=== PATIENT | female | born 1985 | race American Indian/Alaskan Native ===

== ENCOUNTER 2018-01-30 07:59 | Emergency (ER) | payer SELFPAY ==
--- NOTE | 2018-01-30 08:24 | Emergency Department Report ---
ED Female HPI - General Chief complaint: Urogenital-Female Stated complaint: VAG DISCHARGE Time Seen by Provider: 01/30/18 08:22 Source: patient Mode of arrival: Ambulatory Limitations: No Limitations - History of Present Illness Initial comments: Patient is a 27-year-old female presents to the ED complaining of vaginal discharge with foul odor times one week. Patient describes discharge as white, creamy consistency. She denies any vaginal lesions or pain. She states last menstrual period was 01/20/2018. Patient reports recent unprotected sex with her partner. Patient denies any fever, chills, nausea or vomiting vaginal itching, dysuria, vaginal bleeding, dyspareunia. MD Complaint: vaginal discharge, dysuria, pelvic pain - Related Data Previous Rx's Medication Instructions Recorded Last Taken Type ALBUTEROL Inhaler [ProAir HFA 2 puff IH QID PRN #1 inha 09/15/13 Unknown Rx Inhaler] Azithromycin [Zithromax Z-SANTOSH] 250 mg PO DAILY #4 tab 09/15/13 Unknown Rx HYDROcodone/APAP 5-325 [Central 1 each PO Q6HR PRN #20 tablet 09/15/13 Unknown Rx 5/325 mg] Ibuprofen [Motrin] 800 mg PO TID PRN #30 tablet 09/15/13 Unknown Rx predniSONE [Deltasone] 20 mg PO QDAY #8 tablet 09/15/13 Unknown Rx Fluticasone [Flonase] 1 spray NS QDAY #1 bottle 11/15/15 Unknown Rx Ibuprofen [Motrin 800 MG tab] 800 mg PO Q8HR PRN #30 tablet 11/15/15 Unknown Rx Ondansetron [Zofran Odt] 4 mg PO Q6HR PRN #20 tab.rapdis 11/15/15 Unknown Rx guaiFENesin/CODEINE [Robitussin AC] 5 ml PO Q6HR PRN #120 oral.liqd 11/15/15 Unknown Rx Allergies Allergy/AdvReac Type Severity Reaction Status Date / Time iodine Allergy Hives Unverified 09/26/16 08:59 Penicillins Allergy Hives Unverified 09/26/16 08:58 ED Review of Systems ROS: Stated complaint: VAG DISCHARGE Other details as noted in HPI Constitutional: denies: chills, fever Eyes: denies: eye pain, eye discharge, vision change ENT: denies: ear pain, throat pain Respiratory: denies: cough, shortness of breath, wheezing Cardiovascular: denies: chest pain, palpitations Endocrine: no symptoms reported Gastrointestinal: denies: abdominal pain, nausea, diarrhea Genitourinary: discharge. denies: urgency, dysuria, frequency, hematuria Musculoskeletal: denies: back pain, joint swelling, arthralgia Skin: denies: rash, lesions, pruritus Neurological: denies: headache, weakness, paresthesias Psychiatric: denies: anxiety, depression Hematological/Lymphatic: denies: easy bleeding, easy bruising ED Past Medical Hx - Past Medical History Hx Sickle Cell Disease: Yes Hx Asthma: Yes - Surgical History Additional Surgical History: R leg - Social History Smoking Status: Current Every Day Smoker Substance Use Type: None - Medications Home Medications: Home Medications Medication Instructions Recorded Confirmed Last Taken Type ALBUTEROL Inhaler [ProAir HFA 2 puff IH QID PRN #1 inha 09/15/13 Unknown Rx Inhaler] Azithromycin [Zithromax Z-SANTOSH] 250 mg PO DAILY #4 tab 09/15/13 Unknown Rx HYDROcodone/APAP 5-325 [Central 1 each PO Q6HR PRN #20 tablet 09/15/13 Unknown Rx 5/325 mg] Ibuprofen [Motrin] 800 mg PO TID PRN #30 tablet 09/15/13 Unknown Rx predniSONE [Deltasone] 20 mg PO QDAY #8 tablet 09/15/13 Unknown Rx Fluticasone [Flonase] 1 spray NS QDAY #1 bottle 11/15/15 Unknown Rx Ibuprofen [Motrin 800 MG tab] 800 mg PO Q8HR PRN #30 tablet 11/15/15 Unknown Rx Ondansetron [Zofran Odt] 4 mg PO Q6HR PRN #20 tab.rapdis 11/15/15 Unknown Rx guaiFENesin/CODEINE [Robitussin AC] 5 ml PO Q6HR PRN #120 oral.liqd 11/15/15 Unknown Rx ED Physical Exam - General Limitations: No Limitations General appearance: alert, in no apparent distress - Head Head exam: Present: atraumatic, normocephalic - Eye Eye exam: Present: normal appearance - ENT ENT exam: Present: mucous membranes moist - Neck Neck exam: Present: normal inspection - Respiratory Respiratory exam: Present: normal lung sounds bilaterally. Absent: respiratory distress - Cardiovascular Cardiovascular Exam: Present: regular rate, normal rhythm. Absent: systolic murmur, diastolic murmur, rubs, gallop - GI/Abdominal GI/Abdominal exam: Present: soft, normal bowel sounds. Absent: distended, tenderness, guarding - External exam: Present: normal external exam. Absent: erythema, swelling, lesions, lacerations Speculum exam: Present: vaginal discharge, cervical discharge. Absent: erythema , vaginal bleeding, tissue Bi-manual exam: Present: normal bi-manual exam. Absent: adnexal tenderness, uterine tenderness - Extremities Exam Extremities exam: Present: normal inspection, full ROM - Back Exam Back exam: Present: normal inspection, full ROM. Absent: tenderness - Neurological Exam Neurological exam: Present: alert, oriented X3 - Psychiatric Psychiatric exam: Present: normal affect, normal mood - Skin Skin exam: Present: warm, dry, intact, normal color. Absent: rash ED Course Vital Signs 01/30/18 01/30/18 01/30/18 08:03 08:37 11:23 Temperature 98.8 F 98.0 F 98.0 F Pulse Rate 77 84 76 Respiratory 18 14 14 Rate Blood Pressure 135/94 Blood Pressure 140/95 138/88 [Right] O2 Sat by Pulse 99 98 98 Oximetry ED Medical Decision Making - Medical Decision Making 32-year-old female presents with trichomoniasis. ED course: urinalysis and gonorrhea and Chlamydia cultures obtained. Urinalysis positive for leukorrhea Patient received 250 mg of Rocephin, azithromycin 1 g, Flagyl 2 g. Discussed with patient possible STD due to exposure. Discussed with patient findings and treatment Discussed prophylaxis treatment patient is to abstain from sex 7-10 days as treatment. Discussed patient partner knowledge and treatment. Discussed the follow-up with the health department for further STD testing. Patient's alert and oriented times 3. Vital signs are normal patient is in no acute discharge. Patient will be discharged home with instructions. Critical care attestation.: If time is entered above; I have spent that time in minutes in the direct care of this critically ill patient, excluding procedure time. ED Disposition Clinical Impression: STD (sexually transmitted disease), Trichomonal cervicitis UTI (urinary tract infection) Qualifiers: Urinary tract infection type: acute cystitis Hematuria presence: without hematuria Qualified Code(s): N30.00 - Acute cystitis without hematuria Disposition: TO HOME OR SELFCARE Is pt being admited?: No Does the pt Need Aspirin: No Condition: Stable Instructions: Cervicitis (ED), Sexually Transmitted Diseases (ED), Safe Sex (ED ), Trichomoniasis (ED) Additional Instructions: Make sure to follow up with the primary care physician as discussed. Take all your medications as you've been prescribed. If you have any worsening symptoms or develop new symptoms please return to ED immediately. Referrals: PRIMARY CARE, [Primary Care Provider] - 3-5 Days Forms: STI Treatment and Prevention, Work/School Release Form(ED) Time of Disposition: 10:24
[2018-01-30 09:35] LABS: Bacteria,Urine 1+ /HPF (Negative); Bilirubin,Urine NEG (Negative); Blood,Urine NEG (Negative); Color,Urine Yellow (Yellow); Mucus,Urine 1+ /HPF; Protein,Urine <15 mg/dL mg/dL (Negative)
[2018-01-30 09:36] LABS: HCG Qualitative,Urine Negative (Negative)
[2018-01-30] MEDS ORDERED: XYLOCAINE 1% MPF 5 mL INFILTRATI ONE (10:19)
[2018-01-30] MEDS ORDERED: FLAGYL PO ONE (10:19)
[2018-01-30] MEDS ORDERED: ROCEPHIN IM ONE (10:19)
[2018-01-30] MEDS ORDERED: ZITHROMAX PO ONE (10:19)
[2018-01-30 11:25] VITALS: BP 138/88
== END 2018-01-30 11:23 | disposition home or self-care (01) ==
LOC: ED 07:59
DX: N30.00 Acute cystitis without hematuria (principal); A59.09 Other urogenital trichomoniasis; A64 Unspecified sexually transmitted disease; J45.909 Unspecified asthma, uncomplicated; F17.200 Nicotine dependence, unspecified, uncomplicated
CPT/HCPCS: 81001; 81025; 87210; 87591; 96372; 99284; J0696

== ENCOUNTER 2019-07-18 21:57 | Inpatient (IN) | payer MEDICAID ==
[2019-07-18] MEDS ORDERED: LACTATED RINGERS 2,000 ML ONE (23:02)
[2019-07-18] MEDS ORDERED: LACTATED RINGERS 1,000 ML IV SCH (23:45)
[2019-07-18 23:59] LABS: Basophils % (Auto) 0.5 % (0.0-1.8); Eosinophils # (Auto) 0.1 K/mm3 (0.0-0.4); Eosinophils % (Auto) 0.9 % (0.0-4.3); Hematocrit 31.9 % (30.3-42.9); Hemoglobin 10.7 gm/dl (10.1-14.3); Lymphocytes # (Auto) 1.4 K/mm3 (1.2-5.4); Lymphocytes % (Auto) 20.7 % (13.4-35.0); Mean Corpuscular HGB Conc 34 % (30-34); Mean Corpuscular Volume 91 fl (79-97); Monocytes # (Auto) 0.5 K/mm3 (0.0-0.8); Platelet Count 228 K/mm3 (140-440); Red Blood Count 3.52 M/mm3 (3.65-5.03)
[2019-07-19] MEDS ORDERED: OXYTOCIN 20 UNIT/1000ML DRIP 20,000 MILLIUNITS/1,000 ML BAG IV ONE (00:42)
--- NOTE | 2019-07-19 01:32 | History and Physical Report ---
History of Present Illness Date of examination: 07/19/19 Date of admission: 07/19/19 01:10 Chief complaint: Leaking fluid, contractions History of present illness: 34yo G 4 P 2 0 1 2 @ 39 weeks 5 days here with c/o leaking fluid since 07/18/19 @ 21:20 and contractions. She reports +FMs. SROM confirmed by Nitrazine test; bloody fluid per RN. She is a [facility] pt who initiated care at 10 weeks gestation. She was later incarcerated at the [facility] where she had one documented visit. Her course was complicated by anemia, asthma, breast fibroadenosis, fibroid uterus, heart murmur, size date discrepancy, +trichomonas (neg DARION) and vit D deficiency. Her care was co-managed w/[facility]. LABS: Opos, Antibody Screen neg, Pap Smear normal, RI, VDRL NR, HBsAg neg, HIV neg, MSAFP neg, Diabetes Screen 105, GC/CT/Trich neg. Past History Past Medical History: asthma Past Surgical History: other (breast biopsy, hand surgery, open reduction & internal fixation of right femur) EMPLOYMENT OFFICER History: other (breast fibroadenosis) Family/Genetic History: hypertension, cancer (breast, colon), other (TIA) Social history: single, lives with family, full code. denies: smoking, alcohol abuse, prescription drug abuse, IV drug use - Obstetrical History Expected Date of Delivery: 07/21/19 Actual Gestation: 39 Week(s) 5 Day(s) : 4 Para: 2 Hx # Term Pregnancies: 2 Number of Pregnancies: 0 Spontaneous Abortions: 1 Induced : 0 Number of Living Children: 2 #1 Infant Gender: Female year: 2,006 (10/08/2005) Birthweight: 2.92 kg (6 lbs 7 oz) Method of Delivery: Vaginal Gestational age at delivery: 40 Complications: none #2 Infant Gender: Female year: 2,010 (08/17/2009) Birthweight: 2.778 kg (6 lbs 2 oz) Method of Delivery: Vaginal Gestational age at delivery: 40 Complications: none Medications and Allergies Allergies Allergy/AdvReac Type Severity Reaction Status Date / Time iodine Allergy Hives Verified 12/01/18 21:59 Penicillins Allergy Hives Verified 12/01/18 21:59 shellfish derived Allergy Hives Verified 12/01/18 21:36 Home Medications Medication Instructions Recorded Confirmed Last Taken Type ALBUTEROL Inhaler (OR & NICU) 2 puff IH QID PRN #1 inha 09/15/13 Unknown Rx [ProAir HFA Inhaler] Azithromycin [Zithromax Z-SANTOSH] 250 mg PO DAILY #4 tab 09/15/13 Unknown Rx HYDROcodone/APAP 5-325 [Hercules 1 each PO Q6HR PRN #20 tablet 09/15/13 Unknown Rx 5/325 mg] Ibuprofen [Motrin] 800 mg PO TID PRN #30 tablet 09/15/13 Unknown Rx predniSONE [Deltasone] 20 mg PO QDAY #8 tablet 09/15/13 Unknown Rx Fluticasone [Flonase] 1 spray NS QDAY #1 bottle 11/15/15 Unknown Rx Ibuprofen [Motrin 800 MG tab] 800 mg PO Q8HR PRN #30 tablet 11/15/15 Unknown Rx Ondansetron [Zofran Odt] 4 mg PO Q6HR PRN #20 tab.rapdis 11/15/15 Unknown Rx guaiFENesin/CODEINE [Robitussin AC] 5 ml PO Q6HR PRN #120 oral.liqd 11/15/15 Unknown Rx Nitrofurantoin Monohyd/M-Cryst 100 mg PO BID #14 capsule 12/02/18 Unknown Rx [Macrobid 100 mg Capsule] Active Meds: Active Medications Clindamycin HCl (Cleocin 900 Mg/50 Ml) 900 mg in 50 mls @ 100 mls/hr IV Q8HR KENTRELL; Protocol Stop: 07/19/19 23:45 Last Admin: 07/19/19 00:00 Dose: 100 mls/hr Documented by: Lactated Ringer's (Lactated Ringers) 1,000 mls @ 125 mls/hr IV DIRECT KENTRELL Last Admin: 07/18/19 22:56 Dose: 125 mls/hr Documented by: Review of Systems All systems: negative - Vital Signs Vital signs: Vital Signs Temp Pulse Resp BP 98.3 F 77 16 130/76 07/18/19 22:31 07/18/19 22:31 07/18/19 22:31 07/18/19 22:31 Temp Pulse Resp BP Pulse Ox 98.3 F 76 16 130/76 100 07/18/19 22:31 07/18/19 23:55 07/18/19 22:31 07/18/19 22:31 07/18/19 23:55 - Obstetrical FHR: category 2 FHR comments: baseline 115, moderate variability, +accels, intermittent variable decels Cervical Dilatation: 3 (per RN) Cervical Effacement Percentage: 80 (per RN) station: -3 (per RN) Results Result Diagrams: 07/18/19 22:35 Abnormal lab results 07/18/19 Range/Units 22:35 RBC 3.52 L (3.65-5.03) M/mm3 [place] % (Auto) 8.0 H (0.0-7.3) % All other labs normal. Assessment and Plan - Patient Problems (1) 39 weeks gestation of Current Visit: Yes Status: Acute (2) Spontaneous rupture of amniotic membranes Current Visit: Yes Status: Acute (3) Active labor at term Current Visit: Yes Status: Acute Plan to address problem: Admit to L&D with routine labor orders Start antibiotics for GBS prophylaxis Anticipate vaginal delivery
[2019-07-19] MEDS ORDERED: TERBUTALINE 1 MG/1 ML INJ IVP PRN (01:34)
[2019-07-19] MEDS ORDERED: MINERAL OIL 30 ML ORAL LIQD PO PRN (01:34)
[2019-07-19] MEDS ORDERED: TERBUTALINE 1 MG/1 ML INJ SUB-Q PRN (01:34)
[2019-07-19] MEDS ORDERED: ePHEDrine SULFATE 50 MG/1 ML INJ IV PRN (01:34)
[2019-07-19] MEDS ORDERED: LIDOCAINE (2%) 20 MG/1 ML VIAL 20 ML MDV INFILTRATI ONE (01:34)
--- NOTE | 2019-07-19 01:39 | Procedure Note ---
OB Delivery Note - Delivery Date of Delivery: 07/19/19 (00:48) Surgeon: GALE NARAYANAN (JOHN) Estimated blood loss: <100cc - Vaginal Delivery presentation: vertex Delivery position: OA Intrapartum events: meconium, precipitous labor- <3hr Delivery induction: none Delivery monitor: external FHT, external uterine Route of delivery: Delivery placenta: spontaneous (01:26) Delivery cord: 3 umbilical vessels Episiotomy: none Delivery laceration: none Anesthesia: none Delivery comments: RN-assisted of a 6 lbs 5 oz male on 07/19/19 @ 00:48 with NICU team in attendance. Received a call from SHASHANK Ryan at 23:15 that patient was 3cm/80/-3 and spontaneously ruptured since 21:20. Received a 2nd call @ 23:48 that pt is allergic to PCN and can't be given Ampicillin for GBS prophylaxis. Orders given for Clindamycin 900mg IV q8hr until delivery. Received a 3rd call at 00:30 that the pt was 10cm with urge to push. Upon my arrival in the pt's room @ 01:20, in progress and placenta intact with no bleeding. Spontaneous delivery of placenta, Santiago-side presenting at 01:26. Scant lochia present. Fundal massage and IV Pitocin bolus initiated. Fundus F/ML/U-2. Placenta intact; was discarded. Perineum intact. Periurethral skid jimenez present and left unrepaired. Mom and baby in stable condition. - Infant A at 1 minute: 7 at 5 minutes: 9 Infant Gender: Male (6 lbs 5 oz (2857gm); 19 in)
[2019-07-19] MEDS ORDERED: PROMETHAZINE 25 MG RECT SUPP PR PRN (01:57)
[2019-07-19] MEDS ORDERED: LANOLIN/ZINC/DIMETHICONE (LANSINOH) 7 GM TP PRN (01:57)
[2019-07-19] MEDS ORDERED: WITCH HAZEL/ GLYCERIN PAD TP PRN (01:57)
[2019-07-19] MEDS ORDERED: diphenhydrAMINE 25 MG CAP PO PRN (01:57)
[2019-07-19] MEDS ORDERED: PROMETHAZINE 25 MG TAB PO PRN (01:57)
[2019-07-19] MEDS ORDERED: ACETAMINOPHEN 325 MG TAB PO PRN (01:57)
[2019-07-19] MEDS ORDERED: MAGNESIUM HYDROXIDE (MOM) ORAL LIQD UDC PO PRN (01:57)
[2019-07-19] MEDS ORDERED: ONDANSETRON 4 MG/2 ML INJ IV PRN (01:57)
[2019-07-19] MEDS ORDERED: OXYTOCIN 20 UNIT/1000ML DRIP 20 UNITS/1,000 ML BAG IV SCH (02:00)
[2019-07-19] MEDS ORDERED: LACTATED RINGERS 1,000 ML IV SCH (02:00)
[2019-07-19] MEDS: HYDROcodone/ACETAMINOPHEN 5-325 MG TAB PO PRN ×3 (04:21→16:27)
[2019-07-19] MEDS: IBUPROFEN 600 MG TAB PO SCH ×4 (06:18→19:20)
[2019-07-19 07:10] LABS: Amphetamine Screen,Urine PRESUMPTIVE NEGATIVE; Benzodiazepines Screen,Urine PRESUMPTIVE NEGATIVE; Cannabinoid Screen,Urine PRESUMPTIVE NEGATIVE; Cocaine Screen,Urine PRESUMPTIVE NEGATIVE; Methadone Screen,Urine PRESUMPTIVE NEGATIVE; Opiate Screen,Urine PRESUMPTIVE NEGATIVE
[2019-07-19] MEDS: PRENATAL VIT27-FE FUMARATE-FOLIC ACID VIT TAB PO SCH (10:17)
[2019-07-19] MEDS: FERROUS SULFATE 325 MG TAB PO SCH (10:17)
[2019-07-20] MEDS: IBUPROFEN 600 MG TAB PO SCH ×4 (01:50→17:31)
[2019-07-20 07:57] LABS: Hematocrit 29.1 % (30.3-42.9); Hemoglobin 9.7 gm/dl (10.1-14.3)
--- NOTE | 2019-07-20 10:18 | Progress Note ---
Assessment and Plan - Patient Problems (1) (normal spontaneous vaginal delivery) Current Visit: Yes Status: Acute Plan to address problem: Continue routine PP orders Anticipate D/C home tomorrow (2) Anemia Current Visit: Yes Status: Acute Qualifiers: Anemia type: other cause Other causes of anemia: acute posthemorrhagic Qualified Code(s): D62 - Acute posthemorrhagic anemia Plan to address problem: Asymptomatic Continue daily oral iron supplementation as directed Increase iron rich foods into diet Subjective - Subjective Date of service: 07/20/19 Principal diagnosis: - PPD #1 Interval history: See admission H & P; OB delivery summary and PP progress notes Patient reports: appetite normal, voiding normally, pain well controlled, flatus, ambulating normally, no bowel movement : doing well, bottle feeding Objective - Vital Signs Latest vital signs: Vital Signs Temp Pulse Resp BP BP Pulse Ox 07/20/19 08:20 97.9 F 65 20 112/77 98 07/20/19 01:19 98.6 F 64 20 127/75 98 07/19/19 16:15 98.8 F 87 18 143/56 07/19/19 12:08 98.4 F 78 18 116/60 Intake and Output 07/19/19 07/20/19 07/20/19 23:59 07:59 15:59 Intake Total 680 480 Balance 680 480 Intake: Oral 680 480 Other: Total, Intake Amount 240 240 # Voids Void 1 1 - Exam Breasts: Present: normal Cardiovascular: Present: Regular rate Lungs: Present: Normal air movement Abdomen: Present: soft, normal bowel sounds Uterus: Present: firm, fundal height at umbilicus Extremities: Present: normal Deep Tendon Reflex Grade: Normal +2 - Labs Labs: Abnormal lab results 07/20/19 Range/Units 07:28 Hgb 9.7 L (10.1-14.3) gm/dl Hct 29.1 L (30.3-42.9) %
[2019-07-20] MEDS: PRENATAL VIT27-FE FUMARATE-FOLIC ACID VIT TAB PO SCH (11:05)
[2019-07-20] MEDS: FERROUS SULFATE 325 MG TAB PO SCH (11:05)
[2019-07-21] MEDS: IBUPROFEN 600 MG TAB PO SCH ×3 (04:00→10:58)
--- NOTE | 2019-07-21 10:04 | Progress Note ---
Assessment and Plan - Patient Problems (1) Status post normal vaginal delivery Current Visit: Yes Status: Acute Plan to address problem: PPD 2 - stable Discharge to home today Follow-up at [facility] as needed or in 6 weeks for exam (2) Anemia due to blood loss, acute Current Visit: Yes Status: Acute Plan to address problem: Asymptomatic Continue iron therapy Eat iron-rich foods (3) Encounter for other general counseling and advice on contraception Current Visit: Yes Status: Acute Plan to address problem: Counseling on all options of contraception provided. 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 Patient reports: appetite normal, voiding normally, pain well controlled, ambulating normally, no dizzy ambulation [place]: doing well, bottle feeding Objective - Vital Signs Latest vital signs: Vital Signs Temp Pulse Resp BP BP Pulse Ox 07/21/19 08:11 97.9 F 61 18 124/85 98 07/20/19 23:30 98.4 F 72 18 112/79 07/20/19 16:33 98.6 F 69 20 121/77 98 Intake and Output 07/20/19 07/21/19 07/21/19 23:59 07:59 15:59 Intake Total 420 120 Balance 420 120 Intake: Oral 120 120 Intake, Free Water 300 Other: Total, Intake Amount 120 120 # Voids Void 1 1 1 - Exam Cardiovascular: Present: Regular rate Lungs: Present: Clear to auscultation, Normal air movement Abdomen: Present: normal appearance, soft Vulva: both: normal Uterus: Present: normal, firm, fundal height below umbilicus Extremities: Present: normal Comments: scant lochia
--- NOTE | 2019-07-21 10:08 | Discharge Summary ---
Providers - Providers Date of Admission: 07/19/19 01:10 Date of discharge: 07/21/19 Attending physician: AMY STREETER MD Primary care physician: AMY STREETER MD Hospitalization Reason for admission: active labor, IUP at term Delivery: Episiotomy: none Laceration: none Other procedures: none complications: none Discharge diagnosis: IUP at term delivered [place] baby: male Hospital course: Uncomplicated Condition at discharge: Stable Disposition: RI-01 TO HOME OR SELFCARE - Discharge Diagnoses (1) Status post normal vaginal delivery Status: Acute (2) Anemia due to blood loss, acute Status: Acute Comment: Asymptomatic Continue iron therapy Eat iron-rich foods (3) Encounter for other general counseling and advice on contraception Status: Acute (4) Encounter for initial prescription of injectable contraceptive Status: Acute Plan - Discharge Medications Prescriptions: Ferrous Sulfate [Feosol 325 MG tab] 325 mg PO QDAY #30 tablet Ibuprofen [Motrin 600 MG tab] 600 mg PO Q6H #30 tablet - Provider Discharge Summary Activity: routine, no sex for 6 weeks, no heavy lifting 4 weeks, no strenuous exercise Diet: routine Instructions: routine Additional instructions: [] Smoking cessation referral if applicable(refer to patient education folder for contact #) [] Refer to [facility] Booklet Call your doctor immediately for: * Fever > 100.5 * Heavy vaginal bleeding ( >1 pad per hour) * Severe persistent headache * Shortness of breath * Reddened, hot, painful area to leg or breast * Drainage or odor from incision. * Keep incision clean and dry at all times and follow doctor's instructions regarding bathing/showering - Follow up plan Follow up: AMY STREETER MD [Primary Care Provider] - 6 Weeks (Follow-up at [facility] [employer] [facility] as needed or in 6 weeks for exam)
[2019-07-21] MEDS: FERROUS SULFATE 325 MG TAB PO SCH (10:58)
[2019-07-21] MEDS: PRENATAL VIT27-FE FUMARATE-FOLIC ACID VIT TAB PO SCH (10:59)
[2019-07-21] MEDS ORDERED: medroxyPROGESTERone ACETATE 150 MG/ML SYRINGE IM ONE ×2 (11:00→14:54)
[2019-07-21 16:28] VITALS: BP 129/78
== END 2019-07-21 18:34 | disposition home or self-care (01) | DRG 775 ==
LOC: TRG 21:57 → LD 22:26 → TRG 07-19 01:09 → LD 07-19 01:10 → OB 07-19 03:34
PROVIDERS: ADMIT Obstetrics & Gynecology; ATTEND Obstetrics & Gynecology
PROC: 10E0XZZ Delivery of Products of Conception, External Approach (ICD-10-PCS; principal; 2019-07-19)
DX: O62.3 Precipitate labor (principal); J44.9 Chronic obstructive pulmonary disease, unspecified; O77.0 Labor and delivery complicated by meconium in amniotic fluid; O99.52 Diseases of the respiratory system complicating childbirth; Z3A.39 39 weeks gestation of pregnancy; Z37.0 Single live birth; Z87.891 Personal history of nicotine dependence; Z82.49 Family history of ischemic heart disease and other diseases of the circulatory system; Z80.3 Family history of malignant neoplasm of breast; Z86.73 Personal history of transient ischemic attack (TIA), and cerebral infarction without residual deficits; Z91.041 Radiographic dye allergy status; Z88.0 Allergy status to penicillin; Z91.013 Allergy to seafood; Z79.51 Long term (current) use of inhaled steroids; O90.81 Anemia of the puerperium; D62 Acute posthemorrhagic anemia
CPT/HCPCS: 36415; 80307; 85014; 85018; 85025; 86592; 86850; 86900; 86901; 96360; 96361; 96365; 96366; G0378; J1050; J2590; J7120

== ENCOUNTER 2021-12-28 07:27 | Day surgery (SDC) | payer MEDICAID ==
[~2021-12-28 07:27] MED LIST: ACETAMINOPHEN 500 MG TAB PO SCH; CELECOXIB 200 MG CAP PO NR; GABAPENTIN 300 MG CAP PO NR; LACTATED RINGERS 1,000 ML IV SCH; MIDAZOLAM 2 MG/2 ML INJ IV NR; SCOPOLAMINE TRANSDERMAL PATCH 72 HR TD NR
[2021-12-28] MEDS ORDERED: ONDANSETRON 4 MG/2 ML INJ ONE (07:59)
[2021-12-28] MEDS ORDERED: fentaNYL 100 MCG/2 ML INJ ONE (07:59)
[2021-12-28] MEDS ORDERED: ROCURONIUM 50 MG/5 ML INJ IV ONE (07:59)
[2021-12-28] MEDS ORDERED: dexAMETHasone 20 MG/5 ML VIAL ONE (07:59)
[2021-12-28] MEDS ORDERED: propofoL 200 MG/20 ML VIAL IV ONE (07:59)
[2021-12-28] MEDS ORDERED: LIDOCAINE MPF (2%) 20 MG/1 ML VIAL 5 ML ONE (07:59)
[2021-12-28] MEDS ORDERED: KETAMINE/STERILE WATER 50 MG/ML SYRINGE ONE (08:00)
[2021-12-28] MEDS ORDERED: KETOROLAC 30 MG/1 ML INJ ONE (08:04)
--- NOTE | 2021-12-28 08:31 | Anesthesia Day of Surgery ---
Anesthesia Day of Surgery - Day of Surgery Patient Examined: Yes Patient H&P Reviewed: Yes Patient is NPO: Yes
--- NOTE | 2021-12-28 08:31 | Anesthesia Consultation ---
Anesthesia Consult and Med Hx Date of service: 12/28/21 - Airway Anesthetic Teeth Evaluation: Good ROM Head & Neck: Adequate Mental/Hyoid Distance: Adequate Mallampati Class: Class II Intubation Access Assessment: Good - Pulmonary Exam CTA: Yes - Cardiac Exam Cardiac Exam: RRR - Pre-Operative Health Status ASA Pre-Surgery Classification: ASA2 Proposed Anesthetic Plan: General - Pulmonary Hx Smoking: Yes (SMOKES CIGARETTES AND VAPE) Hx Asthma: Yes (NO INHALER USE) COPD: No Hx Pneumonia: No - Cardiovascular System Hx Hypertension: Yes (PT STATED BORDERLINE HTN. ) - Central Nervous System Hx Seizures: No Hx Back Pain: Yes Hx Psychiatric Problems: Yes - Endocrine Hx Renal Disease: No Hx End Stage Renal Disease: No Hx Hypothyroidism: No Hx Hyperthyroidism: No - Hematic Hx Anemia: Yes Hx Sickle Cell Disease: No - Other Systems Hx Alcohol Use: No Hx Substance Use: No Hx Cancer: No - Additional Comments Anesthesia Medical History Comments: Femur denise. NAC
[2021-12-28] MEDS ORDERED: oxyCODONE /ACETAMINOPHEN 5-325MG TAB PO PRN (08:47)
[2021-12-28] MEDS ORDERED: SODIUM CHLORIDE 0.9% IRR 1,500 ML BOTTLE IR ONE (09:11)
[2021-12-28] MEDS ORDERED: ePHEDrine SULFATE 50 MG/1 ML INJ ONE (09:28)
[2021-12-28] MEDS ORDERED: SUGAMMADEX SODIUM 200 MG/2 ML VIAL IV ONE (09:54)
[2021-12-28] MEDS: HYDROmorphone 1 MG/1 ML INJ IV PRN ×4 (10:30→11:00)
--- NOTE | 2021-12-28 10:52 | Operative Report ---
Operative Report Operative Report: Preoperative diagnosis: Right ovarian cyst with chronic pelvic pain Postoperative diagnosis: Same: Suspected dermoid Procedure: Operative laparoscopy with right salpingo-oophorectomy and ovarian cyst removal Surgeon: Dr. Cassandra Rodríguez Anesthesia: GETA Complications: Large right ovarian cyst unable to remove from original. Umbilical incision necessitating incision extension IV fluids: 1 L EBL: 100 mL Urine output: Adequate and clear Drains: None Findings: 10 cm right ovarian mass encompassing the entire ovarian cortex and right fallopian tube. No other abdominal pelvic pathology noted. Procedure: Patient was consented in preop and informed consent was obtained. Risk benefits possible complications and alternatives were reviewed. She was taken to the operating room where she received excellent general endotracheal anesthesia. She was then placed in the dorsal lithotomy position and prepped and draped in a sterile fashion. A timeout was verified. A Smith catheter was placed without complication. Duckbill speculum was placed in the vagina and the cervix grasped with a tenaculum and uterine manipulator was inserted atraumatically. Attention turned to the abdomen. An infraumbilical incision was made to allow for passage of a 10 mm Cornell trocar under direct visualization atraumatically. Adequate insufflation of the abdomen was then achieved with CO2 gas. Patient was then placed in steep Trendelenburg. A left lateral 5 mm trocar and a suprapubic 5 mm trocar were then inserted under direct visualization atraumatically. The right utero-ovarian ligament was then manipulated to allow for excellent visualization of the right ovary. A large right ovarian cyst involving the enti re ovarian cortex was noted-this is also involve the right fallopian tube.. LigaSure was used to ligate the infundibulopelvic ligament and the utero-ovarian ligament to allow for removal of the right ovary cyst and fallopian tube. An Endo Catch bag was then inserted in the infraumbilical trocar, the right ovary and cyst were then placed in the Endo Catch bag which was removed from the abdomen in the appropriate fashion with no spillage. The infraumbilical incision had to be extended to allow for passage of the large mass. The Cornell trocar and the two 5 mm trochars were then removed from the abdomen atraumatically. The fascia was closed with 0 Vicryl at all incision sites and the skin closed with Monocry. Dermabond and pressure dressings applied x3. The uterine manipulator was removed from the cervix and the uterus atraumatically. The patient was extubated and taken to the postop recovery area in stable condition. All sponge needle and instrument counts are correct x2. Patient's family was notified of her stable condition at the completion of the procedure. There were no complications. EBL 100 mL Sloane Rodríguez MD
--- NOTE | 2021-12-28 14:38 | Post Anesthesia Evaluation ---
- Post Anesthesia Evaluation Patient Participated: Yes Airway Patent: Yes Stable Respiratory Function: Yes Nausea/Vomiting: No Temp > 96.8F: Yes Pain Manageable: Yes Adequeate Hydration: Yes Anesthesia Complications: No
[2021-12-28 19:54] VITALS: BP 123/84
== END 2021-12-28 07:28 | disposition home or self-care (01) ==
LOC: OR 07:27
PROVIDERS: ATTEND Obstetrics & Gynecology
DX: D27.0 Benign neoplasm of right ovary (principal); R10.2 Pelvic and perineal pain; G89.29 Other chronic pain; G43.909 Migraine, unspecified, not intractable, without status migrainosus; I10 Essential (primary) hypertension; K21.9 Gastro-esophageal reflux disease without esophagitis; M19.90 Unspecified osteoarthritis, unspecified site; J45.909 Unspecified asthma, uncomplicated; F31.9 Bipolar disorder, unspecified; F41.9 Anxiety disorder, unspecified; Z98.890 Other specified postprocedural states; Z87.440 Personal history of urinary (tract) infections
CPT/HCPCS: 58661; 81025; 88305; J1100; J1170; J1885; J2250; J2405; J2704; J3010; J3490; J7120; J7502